=== PATIENT | male | born 1935 | race Caucasian/White ===

== ENCOUNTER 2021-08-02 02:25 | Inpatient (IN) | payer MEDICARE ==
[~2021-08-02] VITALS: Wt 81.4 kg
--- NOTE | 2021-08-02 02:15 | NUR ---
PT ADMITTED TO ROOM 323 VIA STRETCHER FROM [facility]. PT CONFUSED AND PULLING AT IV AND SOSA. CALL LIGHT IN REACH. BED ALARM SET. NOTIFIED MARY JEFFERSON PT IS HERE.
[2021-08-02] MEDS ORDERED: ASPIRIN 81M81 MG/TA2 PO (02:36)
[2021-08-02] MEDS ORDERED: LIPITOR20 MG PO (02:38)
[2021-08-02] MEDS ORDERED: ATIVAN 2MG/ML2 MG/ML IV (02:38)
[2021-08-02] MEDS ORDERED: DIFLUCAN 2200 MG/100 IV (02:39)
[2021-08-02 02:44] VITALS: BP 137/60; PULSE 94; TEMP 97.6
[2021-08-02] MEDS ORDERED: HUMALOG100 U/ML SQ (02:45)
[2021-08-02] MEDS ORDERED: ZESTRIL 20MG TA20 MG PO (02:45)
[2021-08-02] MEDS ORDERED: GLUCOPHAGE1000 MG PO (02:48)
[2021-08-02] MEDS ORDERED: TOPROL XL 50MG50 MG PO (02:49)
[2021-08-02] MEDS ORDERED: MORPHINE SULF2 MG/M1 IV (02:50)
[2021-08-02] MEDS ORDERED: ROCEPHIN VIA1 G/VIAL (02:51)
[2021-08-02] MEDS ORDERED: SODIUM CHLORIDE (02:55)
[2021-08-02] MEDS ORDERED: TYLENOL 325MG325 MG PO (02:55)
[2021-08-02] MEDS ORDERED: GLUCOTROL10 MG PO (02:56)
--- NOTE | 2021-08-02 03:25 | NUR ---
GAVE HALDOL FOR AGITATION. MITTS PUT ON FOR PT SAFETY. LAB HERE TO ATTEMPT BLOOD DRAW. UNABLE TO AT THIS TIME. EZEQUIEL MRAIE RN ABLE TO OBTAIN LAB FROM [facility].
[2021-08-02 03:35] LABS: BASO % 0.4 % (0.0-2.0); EOS # 0.1 K/mm3 (0.0-0.7); EOS % 0.8 % (0-4.0); GRAN # 8.2 K/mm3 (1.4-6.5); HEMATOCRIT 42.5 % (42.0-52.0); HEMOGLOBIN 13.8 g/dl (13.5-18.0); LYMPH # 1.9 K/mm3 (1.2-3.4); LYMPH % 16.9 % (20.0-51.0); MEAN CELL VOLUME 92 fl (80.0-100.0); MEAN CORPUSCULAR HEMOGLOBIN 30 pg (27.0-31.0); MEAN CORPUSCULAR HGB CONC 33 g/dl (33.0-37.0); MEAN PLATELET VOLUME 10.9 fl (7.4-10.4); MONO % 8.5 % (1.7-9.3); PLATELET COUNT 164 K/mm3 (130-400); RED BLOOD COUNT 4.61 M/mm3 (4.20-5.60); REDCELL DISTRIBUTION WIDTH-CV 13.3 % (11.5-14.5)
[2021-08-02 03:52] LABS: LACTIC ACID 2.5 mmol/L (0.5-2.0)
[2021-08-02 03:55] LABS: ALBUMIN 2.9 gm/dL (3.4-4.8); BILIRUBIN,TOTAL 1.3 mg/dL (0.2-1.2); CALCIUM 8.8 mg/dL (8.4-10.2); CREATININE, serum 0.86 mg/dL (0.72-1.25); POTASSIUM 4.3 mmol/L (3.5-4.5); TOTAL PROTEIN 6.4 gm/dL (6.2-8.1)
[2021-08-02 04:32] LABS: HEMOGLOBIN A1C 10.2 %
--- NOTE | 2021-08-02 05:10 | NUR ---
PT RESTING NOW AT THIS TIME. COMMUNITY ARTIST HAS SAT WITH PT SINCE ADMISSION D/T ATTEMPTING TO PULL IV AND SOSA OUT. MARY JEFFERSON NOTIFIED OF THIS BY SHANON CHARGE NURSE.
--- NOTE | 2021-08-02 05:19 | NUR ---
NOTIFIED DR FRASER OF PT'S ADMISSION. PLANS TO COME SEE PT.
[2021-08-02 05:51] VITALS: BP 172/79; PULSE 98; TEMP 98.6
--- NOTE | 2021-08-02 06:19 | NUR ---
PT AWAKE. STILL CONFUSED. TRYING TO REMOVE MITTS.
--- NOTE | 2021-08-02 06:43 | NUR ---
GAVE MS FOR PAIN AT THIS TIME PER DIRECTION OF MARY RESENDIZ. SEE MAR. PT STILL ATTEMPTING TO REMOVE TUBES.
--- NOTE | 2021-08-02 07:24 | NUR ---
0645- Pt. is resting quietly in bed on R side. Report from [facility]. 0700- Noted that pt. has jordan line clamped- informed student nurse teacher and not told in report clamped for UA; Student nurse tried to get urine but none retrieved due to decreased output per report student said; pt. became restless and quietly rests intermittently. 0730- awake and restless trying to get mitts off;does understand instructions to try to rest and purpose of mitts;falls to sleep at 0740.
--- NOTE | 2021-08-02 08:30 | NUR ---
0820- Pt. rests quietly for 10mins...awake and restless;no urine production then restless w/nurse exam for until calmed pt. verbally and tactile w/ warm blanket.Reposition I to L side; mitts removed and sleeping; Ct for ECHO called to do procedure. Restless again.
[2021-08-02 08:45] VITALS: BP 159/43; PULSE 68; TEMP 98.3
--- NOTE | 2021-08-02 10:00 | NUR ---
Contacted Dr. Che, unable to complete MRI d/t pacer being [place] and rep being unavailable until next sunday 08/05. No new orders at this time.
--- NOTE | 2021-08-02 10:02 | NUR ---
PATIENT DID NOT TOLERATE TAKING ORAL MEDICATIONS. MEDICATIONS WERE NOT SWALLOWED WIHT SIPS OF WATER BUT DISSOLVED IN MOUTH. PATIENT HAD MODERATE PRODUCTIVE COUGH AFTER EACH SIP OF WATER.
--- NOTE | 2021-08-02 10:23 | NUR ---
Contacted Dr. Che, patient having low urine output, bladder scanned patient for >980 ml. New order to replace jordan catheter.
[2021-08-02 10:43] LABS: COLLECTION METHOD CATHETER
[2021-08-02 11:00] LABS: PH 6 (5-8); SQUAMOUS EPITHELIAL None Seen /hpf; URINE APPEARANCE Cloudy; URINE BACTERIA Rare /hpf; URINE BILIRUBIN Negative (NEGATIVE); URINE BLOOD 3+ (NEGATIVE); URINE COLOR Yellow; URINE GLUCOSE 3+ (NEGATIVE); URINE KETONE 1+ (NEGATIVE); URINE LEUKOCYTE ESTERASE Negative (NEGATIVE); URINE NITRATE Negative (NEGATIVE); URINE PROTEIN(semi-quant) 2+ (NEGATIVE); URINE RBC >50 /hpf; URINE UROBILINOGEN Negative (NEGATIVE)
--- NOTE | 2021-08-02 11:26 | NUR ---
PREVIOUS SOSA CATHETER REMOVED, 16 GREENLANDIC COUDE PLACED WITH GOOD URINE OUTPUT. MODERATE AMOUNT OF BLOOD NOTED IN URINE. PATIENT TOLERATED WELL.
--- NOTE | 2021-08-02 11:30 | NUR ---
UA SENT TO LAB.
--- NOTE | 2021-08-02 11:36 | NUR ---
1030-Pt. restless;Student nurse attempted to irrigate catheter w/no return of urine but 2 in. blood clot propelled onto bed w/small amount of bleeding. Jordan cath placed by student nurse w/teachers supervision w apparent discomfort for pt and more slight bleeding; few blood clots into tubing w/orange fluid returning into jordan bag. Instructed student nurse to clamp tubing once 1000ml urine in jordan bag to prevent sudden bladder collaspe and increased bleeding. Urine in tubing and bag dark marsh red > 1000ml and so clamped tubing x15 min, and RN to room and emptied jordan. Jordan tubing remained clamped x15min. Student nurse returned to pt's room and updated on above info and reason for tubing to be clamped. urine med marsh red and RN will watch for need of CBI. Pt. given med IV for restlessness. Pleasantly confused. and at 11:50 pt. falls to sleep onto R side.
[2021-08-02 11:57] VITALS: BP 140/50; PULSE 64; TEMP 99.5
--- NOTE | 2021-08-02 13:23 | NUR ---
1300-Placed in chair position;pt. fell to sleep. EKG done and pt. restless;Mitts removed and turned to R side min assist;fell to sleep. Urine remains dark marsh red..minimal output/hr.
--- NOTE | 2021-08-02 14:14 | NUR ---
1400- pt. slept past 1 hr then awaked to turn self to L side then to his back then to R side resting more quietly.
--- NOTE | 2021-08-02 14:53 | NUR ---
Patient to CT by bed.
--- NOTE | 2021-08-02 15:16 | NUR ---
Called by CT, patient anxious attempting to hit staff. Haldol given per orders.
--- NOTE | 2021-08-02 15:33 | NUR ---
1530- to and from CT scanner per bed for Head scan w/ and w/o contrast; was too restless and needed IV Haldol given per RN. Rests quietly once turned to right side after scan completed. Urine remains dark marsh red in jordan bag.
[2021-08-02 15:58] LABS: HEMATOCRIT 40.9 % (42.0-52.0); HEMOGLOBIN 13.4 g/dl (13.5-18.0)
--- NOTE | 2021-08-02 16:08 | NUR ---
The patient has been confused and went down for a scan. MARVA contacted the patient's son, Niles (#[phone]), to discuss discharge plan. The patient lives alone in [place]. Niles lives near the patient. Niles reports that the patient is independent with ADLs and does not have any DME. Niles reports that the patient has just had a decline in the last few days. Niles reports that the patient's PCP is Dr. Clifford in [place], but that he may be switching to Dr. Melissa in [place]. He receives his medications at [facility]. The patient does not have a DPOA-HC in EMR, but Niles reports that the patient does have one completed and that he is the patient's DPOA-HC. He reports that he has a copy. He reports that the patient is not and that he is the patient's only child. MARVA discussed possible post-acute rehab upon discharge. Niles reports that Dr. Melissa did mention this to him and about having the patient transfer to their swing bed in [place] upon discharge. He was open for MARVA to send a referral. Niles also requested a call from the doctor. MARVA notified the hospitalist. MARVA contacted and faxed a referral to [facility]. Awaiting screen. *Discharge plan: [facility] swing bed* [facility]: #[phone] fax#[phone]
[2021-08-02 16:30] VITALS: BP 132/60; PULSE 76; TEMP 98
--- NOTE | 2021-08-02 17:02 | NUR ---
1700- Pt. is restless after slept half an hour on his R side and restless w min assistto L side and to back to chair position; tries to pull at jordan,IV tubing and site, throws off covers, and pulling at telemetry wires; turned to his R side at 17:20 and resting quietly at present.
--- NOTE | 2021-08-02 18:27 | NUR ---
1800- Pt. having increased restlessness and not able to rest- apnea less from 20-25 secs. to 5-10 secs. at this time and RN notified that pt. is not able to stop pulling on tubings and slightly bloody nino areas and stat lock needed to be changed for second time today. RN gave IV med. Cleaned and repositioned to his R side; pt. denies any pain and after 20 mins pt. is less restless.
--- NOTE | 2021-08-02 19:37 | NUR ---
PT RESTLESS IN BED. SITTER AT BEDSIDE. NO EVIDENCE OF PAIN. SOSA TO DD WITH DARK REJI SL PINK URINE RETURN.
[2021-08-02 20:01] VITALS: BP 132/61; PULSE 79; TEMP 98.5
--- NOTE | 2021-08-02 20:36 | NUR ---
UNABLE TO TAKE HS PILLS.
--- NOTE | 2021-08-02 23:44 | NUR ---
PT BECOMING RESTLES AND PULLING ON TUBINGS. SEE MAR FOR MS GIVEN. REPOSTIONED FOR COMFORT. SOME BLOOD URINE NOTED IN SOSA FROM PT PULLING ON IT. WILL CONTINUE TO MONITOR. NO BLADDER FULLNESS NOTED.
[2021-08-03] VITALS (7 sets, daily range): BP systolic 140–178; BP diastolic 52–64; PULSE 70–79; TEMP 97.4–98.7
--- NOTE | 2021-08-03 06:50 | NUR ---
THE RN IS SITTING WITH PATIENT TODAY; PT DID WAKE UP AND WAS ALERT, PT ASKED "AM I IN THE HOSPITAL?" THE RN DID PERFORM A NEURO CHECK, PT IS ALERT AND ORIENTED X2. HE WAS ABLE TO STATE HIS NAME, BIRTHDAY, HE KNEW THAT IT WAS FALL, AND HE KNEW WHAT CITY HE WAS FROM, BUT WAS UNAWARE WHAT CITY HE WAS IN BECAUSE HE DOES NOT REMEMBER BEING BROUGHT IN AT ALL. PRIMARY RN NOTIFIED.
[2021-08-03 08:24] LABS: BASO % 0.4 % (0.0-2.0); EOS # 0.1 K/mm3 (0.0-0.7); EOS % 1.4 % (0-4.0); GRAN # 7.2 K/mm3 (1.4-6.5); GRAN % 70.5 % (42.2-75.2); HEMATOCRIT 42.7 % (42.0-52.0); HEMOGLOBIN 13.7 g/dl (13.5-18.0); LYMPH # 1.8 K/mm3 (1.2-3.4); LYMPH % 17.6 % (20.0-51.0); MEAN CELL VOLUME 93 fl (80.0-100.0); MEAN CORPUSCULAR HEMOGLOBIN 30 pg (27.0-31.0); MEAN CORPUSCULAR HGB CONC 32 g/dl (33.0-37.0); MEAN PLATELET VOLUME 12.1 fl (7.4-10.4); MONO % 9.7 % (1.7-9.3); PLATELET COUNT 124 K/mm3 (130-400); RED BLOOD COUNT 4.61 M/mm3 (4.20-5.60); REDCELL DISTRIBUTION WIDTH-CV 13.5 % (11.5-14.5)
[2021-08-03 08:39] LABS: ALBUMIN 2.4 gm/dL (3.4-4.8); BILIRUBIN,TOTAL 1.3 mg/dL (0.2-1.2); CALCIUM 8.6 mg/dL (8.4-10.2); CREATININE, serum 0.82 mg/dL (0.72-1.25); POTASSIUM 3.5 mmol/L (3.5-4.5); TOTAL PROTEIN 5.9 gm/dL (6.2-8.1)
--- NOTE | 2021-08-03 08:58 | NUR ---
Provided pericare, no abnormality with the foreskin. Replaced the statlock on the jordan catheter, pt denies any pain during care. No further concerns.
--- NOTE | 2021-08-03 09:24 | NUR ---
Pt becoming far more alert this morning. Dr. Che performed rounding this morning and assessed the patient. The patient was able to answer orientation questions about himself, and was able to state his son's name Niles. The patient is relaxed and resting. He does grab at the tubing for his catheter, and states that he would like to go to the bathroom. This RN reoriented the patient to having a catheter, and that his bladded is being drained by that. He states "This is just crazy, I've never had anything like this in my whole life." The patient does seem confused as to how he got here, but is becoming more alert and oriented as time passes. No further concerns at this time.
--- NOTE | 2021-08-03 11:14 | NUR ---
Left VM for Dr. Gracia about consult.
--- NOTE | 2021-08-03 12:35 | NUR ---
Pt is awake and alert sitting in recliner with the chair alarm in place and activated. The patient shakes his head side to side with some vigor and states, "There is something wrong with my head." The patient denies any headaches or pain to his body, just the off feeling he's having in his head. There are no other concerns at this time. Pt has been drinking water without coughing. Pt is doing some neck physical therapy on his own, when this RN asked if his neck was sore, he said no, he was just bored, so felt he needed to be doing something. No other concerns at this time.
--- NOTE | 2021-08-03 15:13 | NUR ---
PT IS CURRENTLY GETTING VERY CONFUSED, AND HAS BEGUN TO ASK IF HE CAN GO HOME. THIS RN CONTINUES TO ATTEMPT TO REORIENT, HOWEVER, THE MEMORY IS VERY SHORT, AND HE IS UNABLE TO RECALL WHY HE IS BEING ASKED TO STAY. HE IS AWARE THAT HE IS IN THE HOSPITAL, HOWEVER HE CONTINUES TO STATE HE IS IN [facility] WHICH IS WHERE THE PATIENT LIVES. PT HAS ASKED FOR ALL THE TUBES AND DRAINS TO BE REMOVED, AND AGAIN HE IS ORIENTED TO THEIR PURPOSE. PT IS BEGINNING TO GET UPSET AT THE INABILITY TO GO HOME. WILL NOTIFY PRIMARY RN OF STATUS.
--- NOTE | 2021-08-03 17:44 | NUR ---
Pt has been very restless this afternoon/evening. He has gotten up and down, and has walked all over the surgical floor. Pt is somewhat stable when walking, just some assistance to make sure he does not fall.
--- NOTE | 2021-08-03 19:00 | NUR ---
Bedside shift report received, assumed care for crochet machine operator. Assessment complete. Alert-oriented to person. VS remained stable. Smauels cath with red tinged urine with occasional small clot. INT to right upper arm flushes without difficulty. Denies pain/nausea/shortness of breath. No s/s of at this time. Up to ambulate in hallway with gait belt. Back to chair-alarm on. Call light in reach. Will monitor.
--- NOTE | 2021-08-03 20:10 | NUR ---
IV fluids restarted at this time per dr order.
--- NOTE | 2021-08-03 20:30 | NUR ---
Up to ambulate in the hallway with one assist/gait belt. Tolerated well. Has been taking in water well so far this shift. This nurse continues to be at bedside.
--- NOTE | 2021-08-03 23:38 | NUR ---
Resting comfortably in bed. Blanka/cath care provided and brief changed. VS currently stable. Samuels cath with anamaria colored urine. IV fluids continue to infuse to right upper arm IV without difficulty. This nurse remains at bedside per dr mike.
--- NOTE | 2021-08-04 03:10 | NUR ---
Has been getting increasingly more agitated the last thirty minutes. Pulling on IV/jordan cath stating he wants to go to his car and drive home. Reoriented several times but still trying to climb over bed rails. Haldol given per dr order. This nurse remains at bedside per dr order.
[2021-08-04 03:18] VITALS: BP 152/65; PULSE 70; TEMP 97.3
--- NOTE | 2021-08-04 04:59 | NUR ---
Rested well most of this shift. Did receive Haldol x1 per dr order with good results. Samuels cath with linen checker urine this AM. IV fluids continue to infuse to right forearm IV without difficulty. Good oral intake over night. Denies pain/nausea/shortness of breath. VS remained stable. This nurse remained at bedside per dr order. Will monitor.
--- NOTE | 2021-08-04 05:45 | NUR ---
SCDs have been off all this shift due to causing increased agitation when placed.
[2021-08-04 06:36] LABS: BASO # 0.1 K/mm3 (0.0-0.2); BASO % 0.6 % (0.0-2.0); EOS # 0.3 K/mm3 (0.0-0.7); EOS % 3.7 % (0-4.0); GRAN % 61.9 % (42.2-75.2); HEMOGLOBIN 12.3 g/dl (13.5-18.0); LYMPH # 2.1 K/mm3 (1.2-3.4); LYMPH % 25.3 % (20.0-51.0); MEAN CORPUSCULAR HEMOGLOBIN 30 pg (27.0-31.0); MEAN CORPUSCULAR HGB CONC 34 g/dl (33.0-37.0); MEAN PLATELET VOLUME 11.7 fl (7.4-10.4); MONO # 0.7 K/mm3 (0.1-0.6); MONO % 8.3 % (1.7-9.3); PLATELET COUNT 153 K/mm3 (130-400); RED BLOOD COUNT 4.15 M/mm3 (4.20-5.60); REDCELL DISTRIBUTION WIDTH-CV 13.2 % (11.5-14.5)
[2021-08-04 06:41] LABS: HEMATOCRIT 36.3 % (42.0-52.0); MEAN CELL VOLUME 88 fl (80.0-100.0)
[2021-08-04 07:01] LABS: ALBUMIN 2.3 gm/dL (3.4-4.8); CALCIUM 7.9 mg/dL (8.4-10.2); CREATININE, serum 0.76 mg/dL (0.72-1.25); PHOSPHOROUS 1.5 mg/dL (2.3-4.7); POTASSIUM 3.3 mmol/L (3.5-4.5)
[2021-08-04 07:34] VITALS: BP 151/62; PULSE 70; TEMP 97.9
--- NOTE | 2021-08-04 07:45 | NUR ---
A & O X1 but responsive to staff. Not able to tell this nurse where he is or the current year. Repeatedly asked "why are you in my house?" This nurse explained his current situation, however continued believe he was in his hometown and in his own house. Otherwise has been cooperative with this nurse. Bed alarm on; will continue to monitor.
--- NOTE | 2021-08-04 09:00 | NUR ---
Hospitatist notified that patient was drinking fluids but was not able to take non-crushable pills. Not able to give am dose of metoprolol XL. HR within normal limits; will continue to monitor.
--- NOTE | 2021-08-04 10:15 | NUR ---
Patient expressed desire to "get out of here". Asked if he would like to go for a "tour" around the unit and replied that he would. Able to use gait belt and walker and ambulated to his doorway. Switched to a wheelchair and went around the hospital for approximately 20 min. Tolerated well and expressed apppreciation to staff for showing him around. Patient then stated he was tired. Assisted back to bed and currently resting with eyes shut.
[2021-08-04 11:44] VITALS: BP 159/71; PULSE 70; TEMP 98.2
--- NOTE | 2021-08-04 13:43 | NUR ---
Patient has been more restless this afternoon. Requires frequent re-orientation. Have taken multiple walks and rides in the wheelchair in and around the unit as patient does not tolerate staying in his room for long periods of time.
[2021-08-04 16:07] VITALS: BP 158/78; PULSE 70; TEMP 98.3
--- NOTE | 2021-08-04 17:00 | NUR ---
Patient resting more comfortably this afternoon and able to take a long nap; Remains confused but not attempting to get up from bed contantly. Asked hospitalist to re-evaluate for need of 1:1 sitter. Per hospitalist will continue with 1:1 at this time and will re-evaluate in the morning.
[2021-08-04 20:00] VITALS: BP 171/79; PULSE 70; TEMP 99.3
[2021-08-05] VITALS (8 sets, daily range): BP systolic 134–188; BP diastolic 55–93; PULSE 70–78; TEMP 97.2–98.3
--- NOTE | 2021-08-05 08:24 | NUR ---
0715- Pt. is agitated trying to pull at jordan and IV tubing;Confused and refuses food and drink. Restless and curses at times cause he is prevented from pulling at tubings and at 0810 says he may as well give up. Lab and Echo to be done and called both letting them know he was resting better, and lab returned w/assist to x1 max for blood draw. Echo all busy at present when called for procedure readiness. Pt. did want his son to visit today then back to sleep. Urine clear yellow. Pt. does cough at times when asleep. Apnea to shallow breathing q 25-30 secs/min while sleeping.
[2021-08-05 08:27] LABS: BASO % 0.4 % (0.0-2.0); EOS # 0.2 K/mm3 (0.0-0.7); EOS % 2.9 % (0-4.0); GRAN # 4.6 K/mm3 (1.4-6.5); GRAN % 65.3 % (42.2-75.2); HEMOGLOBIN 13.4 g/dl (13.5-18.0); LYMPH # 1.5 K/mm3 (1.2-3.4); LYMPH % 21.4 % (20.0-51.0); MEAN CELL VOLUME 90 fl (80.0-100.0); MEAN CORPUSCULAR HEMOGLOBIN 30 pg (27.0-31.0); MEAN CORPUSCULAR HGB CONC 34 g/dl (33.0-37.0); MEAN PLATELET VOLUME 11.1 fl (7.4-10.4); MONO # 0.7 K/mm3 (0.1-0.6); MONO % 9.7 % (1.7-9.3); PLATELET COUNT 177 K/mm3 (130-400); RED BLOOD COUNT 4.47 M/mm3 (4.20-5.60); REDCELL DISTRIBUTION WIDTH-CV 13.2 % (11.5-14.5)
[2021-08-05 08:48] LABS: ALBUMIN 2.4 gm/dL (3.4-4.8); CALCIUM 8.1 mg/dL (8.4-10.2); CREATININE, serum 0.74 mg/dL (0.72-1.25); MAGNESIUM 1.6 mg/dL (1.6-2.6); PHOSPHOROUS 1.8 mg/dL (2.3-4.7); POTASSIUM 3.3 mmol/L (3.5-4.5)
--- NOTE | 2021-08-05 08:56 | NUR ---
Patient sitting up in bed. Alert and oriented only to self. Samuels to DD with clear yellow urine present. Fluids infusing per orders to left forarm IV. Attempted to give patient AM meds, patient had increased coughing with medications that were able to be crushed and put in pudding. Whole meds not given at this time. Apresoling given per orders for SBP >180. Patient denies needs at this time. Sitter at bedside.
--- NOTE | 2021-08-05 09:59 | NUR ---
0915- Pt. awake and RN updated on pt.having cough,apnea when fell to sleep, and not wanting to eat or drink; did take milk after taking crushed meds w/pudding for RN; pt. wanting to get up for BM. Impulsive and x2 max assist to BSC w/frequent verbal and tactile cues;Passed flatus and x2 to walk to recliner in pt's room;Legs elevated and after couple sips of water pt. was nauseated and sipping up after coughing milk,pudding and mucous w/food particles,crushed pills; RN informed and antinausea med given.Pt. continues cooperative and pleasantly confused. Doea pull on SRINIVASAN wrap saying IV hurts;RN did check site. 1010-Pt. less nauseated;3 sips of water taken.
--- NOTE | 2021-08-05 11:02 | NUR ---
1045- Pt. wanting to go home and repeats himself-pleasantly confused;no more vomitting; to bed w/multiple cues for safety;slight pink smear on chux in chair;scrotal redness; IV site leaking and RN noted; RUE int site not working and IV site leaking clear fluid; RN will restart IVF site. Pt. rests quietly in bed and thristy-given sips of water-no choking.
--- NOTE | 2021-08-05 12:34 | NUR ---
1200- Pt. asleep after Carotid study done and given sips of water. 1235- .. here for swallow and cognitive study.
--- NOTE | 2021-08-05 13:22 | NUR ---
1220-P.T. x2 to instruct pt. about safety and therapy for exercise. 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
--- NOTE | 2021-08-05 16:23 | NUR ---
MARVA contacted [facility] [phone], spoke with Kirsty. They will review in a.m. Referral sent, fax #[phone]. MARVA will follow up in morning. Notified son.
--- NOTE | 2021-08-05 16:24 | NUR ---
1530-Pt. returned to bed after asleep in recliner and awakened for restart IV- IVFs. Pt. is weak x1 mod for transfer and safety cues using FWW and fall precautions,16:30- Pt. repositions self to R side-falls asleep.
--- NOTE | 2021-08-05 17:47 | NUR ---
1745; pt. sleeps off and on. When awake he pulls at IV and states he is not hungry yet. Will wait until 6p.m. to try to eat supper.
--- NOTE | 2021-08-05 19:14 | NUR ---
Patient doing well throughout the day, Sitter at bedside. Samuels to DD with clear yellow urine present. Fluids infusing per orders to right hand IV. Patient denies pain at this time. Will report off to application coordinator.
[2021-08-06] VITALS (8 sets, daily range): BP systolic 151–194; BP diastolic 56–85; PULSE 69–70; TEMP 97.6–98.9
--- NOTE | 2021-08-06 07:23 | NUR ---
0645- Pt. is sleepy and pleasantly confused; Agrees to not pull on any tubes- says he will try. Frequently says he needs to go to the BR to pee and cannot remember that he has jordan in; Less agitated w/o mitts on.. but trying to uncover himself to get up to use BR. RN informed and noted min bloody urine in bag and tubing. RN will ask about removing jordan vs irrigation.pt. able to assist moving himself up in bed and max to wash face and upper body washing.
--- NOTE | 2021-08-06 08:27 | NUR ---
0820-Pt. declines to eat; says he does not eat breakfast at home; drank milk max assist to take sips and cues to swallow. MRI here to do screen for test at 11:00 and knows he had milk- plan w/ and w/o contrast. Pt. says he just wants to go home. Lab here for third try for labwork..due to clotting of 1st spec. Pt. does nap even with needle sticks.
[2021-08-06 08:54] LABS: BASO % 0.4 % (0.0-2.0); EOS # 0.1 K/mm3 (0.0-0.7); EOS % 1.7 % (0-4.0); GRAN # 5.4 K/mm3 (1.4-6.5); GRAN % 71.3 % (42.2-75.2); HEMOGLOBIN 12.9 g/dl (13.5-18.0); LYMPH # 1.2 K/mm3 (1.2-3.4); LYMPH % 15.8 % (20.0-51.0); MEAN CELL VOLUME 89 fl (80.0-100.0); MEAN CORPUSCULAR HEMOGLOBIN 30 pg (27.0-31.0); MEAN CORPUSCULAR HGB CONC 34 g/dl (33.0-37.0); MEAN PLATELET VOLUME 11.6 fl (7.4-10.4); MONO # 0.8 K/mm3 (0.1-0.6); MONO % 10.4 % (1.7-9.3); PLATELET COUNT 173 K/mm3 (130-400); RED BLOOD COUNT 4.29 M/mm3 (4.20-5.60); REDCELL DISTRIBUTION WIDTH-CV 13.5 % (11.5-14.5)
--- NOTE | 2021-08-06 08:55 | NUR ---
MARVA recd call from patient's son, Niles, stating he is frustrated that he is not receiving updated reports. MARVA shared with son that referral was [facility] Son states he has talked with RN and Dr. Viera but that it still is not clear what the plan is. Son is aware there is an MRI pending. MARVA will give hospitalist son's name and number to update him when they can. SW will keep son updated as to placement and progress.
[2021-08-06 09:04] LABS: CALCIUM 8.2 mg/dL (8.4-10.2); CREATININE, serum 0.76 mg/dL (0.72-1.25); MAGNESIUM 1.8 mg/dL (1.6-2.6); POTASSIUM 3.4 mmol/L (3.5-4.5)
--- NOTE | 2021-08-06 09:05 | NUR ---
0900- here to see pt. Updated on 15ml of urine past 2.5 hrs and poor po intake of H2O and milk only.REstless and pulls at tubings;anxious and wanting to go home. Has MRI scheduled at 11:00 W/ and W/O contrast so NPO. Needs med for anxiety. Plans to flush jordan rather than removal. noted lung crakles. Pt. restless at times and falls to sleep at times. Multiple reminding that he cannot go home until says he can and jordan in place for urination.
--- NOTE | 2021-08-06 10:15 | NUR ---
Contacted Rhonda JEFFERSON, patient is to have MRI at 1100, was unable to sit still previously for CT and has been attempting to pull at jordan catheter today. New order for ativan prior to MRI.
--- NOTE | 2021-08-06 10:31 | NUR ---
1000- RN replaced jordan cath after attempts to clear jordan for urine return w/o success;#16 replaced w/ #18 jordan and clots w/blood trickles at penile opening after bladder scanned <200ml. Return not immrdiate but with repositioning jordan tubing- about 400ml w/red urine to clearing of urine. ST here to see pt. with confusion; Somewhat restless.
--- NOTE | 2021-08-06 11:51 | NUR ---
Patient back from MRI.
--- NOTE | 2021-08-06 12:25 | NUR ---
1200-Pt. sleeps and awaken at intervals trying to pull at jordan and than back to sleep. Urine light marsh red in jordan bag to clearing yellow in tubing. Pt. says he is too tired to eat or drink. Apnea q20 seconds q1-2min when asleep.
--- NOTE | 2021-08-06 13:40 | NUR ---
1330- Pt. is more restless-pulls at blankets,gown and attends; mitts applied and seems to rest better;not awake enough to eat or drink. Urine clearing of blood and more output.
--- NOTE | 2021-08-06 16:15 | NUR ---
Apresoline given for SBP 178
--- NOTE | 2021-08-06 18:24 | NUR ---
1815- Fed pt. alternating w/3 small bites and 3 teaspoons of milk or tea and pt. needed cues to swallow but apparently not able to clear and coughs out milky mucus for >15mins. in sitting up position. Urine light yellow w few tiny blood clots.
--- NOTE | 2021-08-06 19:11 | NUR ---
Patient doing well throughout the day, sitter discontinued this afternoon as patient is sleeping intermittently after MRI. Mitts placed on patient. Fluids infusing per orders. Samuels to DD with clear yellow urine at this time. Reported off to pullboat engineer.
--- NOTE | 2021-08-06 22:00 | NUR ---
PT IS DROWSY BUT AWAKENS EASILY TO NAME. ATTEMPTED TO GIVE PT HIS HS PILLS CRUSHED IN PUDDING. PT INSTRUCTED TO SWALLOW. PT IS SEEN ATTEMPTING TO SWALLOW BUT BEGINS COUGHING. PT TOOK 1/2 OF PILLS CRUSHED BUT DID NOT ATTEMPT TO ADMINISTER THE REST R/T CONCERN FOR ASPIRATION. ORAL CARE PROVIDED.
[2021-08-07 04:10] VITALS: BP 158/83; PULSE 70; TEMP 97.8
--- NOTE | 2021-08-07 05:53 | NUR ---
PT'S SON CALLED ET UPDATED ON PT CONDITION R/T PREVIOUS REQUEST. PT HAS BEEN IN BED ALL NIGHT. INTERMITTENTLY SLEEPS ET, HAS BEEN REPOSITIONED WITH 2 ASSIST FREQUENTLY. WHEN PT IS AWAKE, PT STATES THAT HE DOES NOT KNOW WHERE HE IS, DENIES ANY PAIN, ATTEMPTS TO PULL @ SOSA CATH ET PERIPHERAL IV. MITTS PLACED ON HANDS, TAKEN OFF Q 2HRS TO CHECK PULSES ET IV SITE. IV SITE REMAINS INTACT ET BILAT PULSES STRONG. PT'S SAMPLE PREP TECHNICIAN IN BILATERAL HANDS IS STRONG. IV FLUIDS INFUSING, SOSA CATHETER DRAINING DARK YELLOW, CLOUDY URINE. NO BLOOD OR CLOTS SEEN. BED ALARM ON, CALL LIGHT WITHIN REACH.
[2021-08-07 06:53] LABS: BASO % 0.5 % (0.0-2.0); EOS # 0.2 K/mm3 (0.0-0.7); EOS % 1.8 % (0-4.0); GRAN # 5.4 K/mm3 (1.4-6.5); GRAN % 65.7 % (42.2-75.2); HEMATOCRIT 40.5 % (42.0-52.0); HEMOGLOBIN 13.7 g/dl (13.5-18.0); LYMPH # 1.8 K/mm3 (1.2-3.4); LYMPH % 21.6 % (20.0-51.0); MEAN CELL VOLUME 88 fl (80.0-100.0); MEAN CORPUSCULAR HEMOGLOBIN 30 pg (27.0-31.0); MEAN CORPUSCULAR HGB CONC 34 g/dl (33.0-37.0); MEAN PLATELET VOLUME 12.1 fl (7.4-10.4); MONO # 0.8 K/mm3 (0.1-0.6); PLATELET COUNT 167 K/mm3 (130-400); RED BLOOD COUNT 4.58 M/mm3 (4.20-5.60); REDCELL DISTRIBUTION WIDTH-CV 13.5 % (11.5-14.5)
--- NOTE | 2021-08-07 07:09 | NUR ---
Pt doing okay at this time. Reports no needs, call light within reach
[2021-08-07 07:10] LABS: CALCIUM 9.2 mg/dL (8.4-10.2); CREATININE, serum 0.75 mg/dL (0.72-1.25); POTASSIUM 3.8 mmol/L (3.5-4.5)
[2021-08-07 07:54] VITALS: BP 130/71; PULSE 70; TEMP 98.5
--- NOTE | 2021-08-07 08:30 | NUR ---
Pt did eat a few bites of breakfast, but then quickly fell back to sleep. He was somewhat difficult to wake back up. I was able to get him to take his pills with applesauce, but it did take some effort to get him to swallow. He then started to use his fingers with his food and then fell back asleep again.
--- NOTE | 2021-08-07 09:08 | NUR ---
Awaiting urine cultures from urology; Patient no longer has a sitter but remains confused. SW will cont to follow for d/c planning.
[2021-08-07 11:21] VITALS: BP 123/89; PULSE 70; TEMP 97.8
--- NOTE | 2021-08-07 11:21 | NUR ---
Pt has had a bed bath and linens changed. Pt remained drowsy during this time. PT did work with pt and he did ambulate to the desk and back. He did well using his walker. Pt continues to state that he needs to urinate. Pt has jordan catheter which is drainage clear yellow output. Pts son did call mid morning. He was very unhappy and kept saying that his dad was sent here to have his prostate fixed and wondered why we weren't fixing it. Informed him that urology is aware, but that it is something that will be looked into as an outpatient. Pt was not happy to hear this and then right away went on and stated that he doesn't even know what is going on because he keeps getting told different things from everyone. I asked for specifics and he was not able to give any. Pts son then stated that someone called him at 5:00am to come pickling operator his father. I explained that not sure who would have done that because we do not have any orders for him to leave and that once we do, it will be a discussion about tranportation and not a call at 5am. He was then upset that he might be discharged with a catheter and we can't just get rid of someone with one. I stated that pt do discharge and transfer with catheters all the time. Conversation went on for over 30minutes. I was not able to answer questions as the son wanted and he was not clearly understanding the plan of care for the pt. I did end the call mid conversation as he started to threaten lawers and that I needed to be taking orders from the in [place].
--- NOTE | 2021-08-07 12:06 | NUR ---
MARVA recd call from Meg at [facility]; she states that their admitting dr was not in yesterday when she said they could take patient on Thu. Now that Dr. Lavonne Burgess is back in and had a chance to review she is not sure they can take patient. Dr. Burgess would like to talk to our hospitalist. MARVA passed # and info to hospitalist ([phone]). Per Meg, the hospital also recd a call from patient's son telling them about how volatile patient is and he is not sure he wants to come and transport patient to [place]. This worker shared with Meg pt no longer has a sitter and pt is less agitated; currently awaiting urine cultures. MARVA met with patient and asked him some questions, all of which he answered competently. Other than wanting to get out of bed to urinate he appeared a/o. Patient told this worker that he typically sees his son about 1 x a week when he is at home. Discharge plan is pending [facility] once pt is med. stable and phone contact with doctor is made.
--- NOTE | 2021-08-07 12:52 | NUR ---
Pt has been very aggitated since receiving bed bath. He continues to say that he needs to urinate, jordan catheter draining with no issues. Pt then stating that he needs to go to the other room, confused as to being in the hospital. Pt keeps taking his gown off and is very restless. Attempt to reorient and direct pt, but does not follow directions. Mitts on at this time and pt in bed. Bed alarm on. Dr Gracia in to see pt, new orders wrote. Pt was leaning over side of bed around earlier. There was some frothy clear sputum on floor and down siderail of bed. Pt does have a slight cough now, will get chest xray.
--- NOTE | 2021-08-07 13:38 | NUR ---
EEG in progress at this time
--- NOTE | 2021-08-07 14:01 | NUR ---
MARVA spoke with Meg at [facility] , to inquire about patient's PCP. She is not aware of any PCP that patient had prior to hospitalization at their facility. MARVA unable to meet with patient at this time as he is having a test done. MARVA will follow up
[2021-08-07 15:49] VITALS: BP 147/90; PULSE 70; TEMP 97.5
[2021-08-07 19:39] VITALS: BP 156/55; PULSE 70; TEMP 97.7
[2021-08-08] VITALS (8 sets, daily range): BP systolic 100–183; BP diastolic 48–92; PULSE 70–96; TEMP 97.3–98
--- NOTE | 2021-08-08 02:44 | NUR ---
PT RESTING QUIETLY IN BED @ THIS TIME. RESPIRATIONS UNLABORED. PT HAD ATTEMPTED TO PULL ON SOSA WHILE AWAKE EARLIER IN NIGHT. HAD MANGAGED TO PULL STAT LOCK OFF OF LEG. STATLOCK REPLACED. SOSA CATHETER CONTINUES TO DRAIN YELLOW URINE. NO CLOTS OR BLOOD SEEN. CONTINUES TO BE ORIENTED ONLY TO SELF. WHEN ASKED WHERE HE THINKS WE ARE AT, PT STATES "IN THE BASEMENT". ATTEMPTS MADE TO RE-ORIENTATE PT ARE UNSUCCESSFUL. PT STATES MULTIPLE TIMES THAT HE WOULD LIKE TO GO HOME. PT REPOSITIONED IN BED MULTIPLE TIMES. PT ALSO MOVES SELF IN BED FREQUENTLY WHILE AWAKE, TURNS INDEPENDENTLY. HS PILLS WERE ADMINISTERED CRUSHED IN APPLESAUCE. PT IS ABLE TO SWALLOW WITH VERY FREQUENT PROMPTING, STATES THAT IT IS HARD FOR HIM TO SWALLOW. BED ALARM IS ON. CALL LIGHT WITHIN REACH.
--- NOTE | 2021-08-08 05:10 | NUR ---
PT IS AWAKE BUT DROWSY. OCCASIONALLY TRIES TO PULL ON IV TUBING ET SOSA CATH. PT STATES THAT HE WANTS TO GO HOME ET THAT HE WANTS ME TO START HIS TRUCK UP. ATTEMPTED TO RE-ORIENT PT TO SITUATION. PT STATES THAT HE IS COLD, GIVEN WARM BLANKET. BP IS ELEVATED, IV HYDRALAZINE ADMINISTERED. BED ALARM ON, CALL LIGHT WITHIN REACH. WILL CONTINUE TO MONITOR.
[2021-08-08 07:18] LABS: HEMATOCRIT 42.9 % (42.0-52.0); HEMOGLOBIN 14.6 g/dl (13.5-18.0); MEAN CELL VOLUME 87 fl (80.0-100.0); MEAN CORPUSCULAR HEMOGLOBIN 30 pg (27.0-31.0); MEAN CORPUSCULAR HGB CONC 34 g/dl (33.0-37.0); MEAN PLATELET VOLUME 12.3 fl (7.4-10.4); PLATELET COUNT 185 K/mm3 (130-400); RED BLOOD COUNT 4.94 M/mm3 (4.20-5.60); REDCELL DISTRIBUTION WIDTH-CV 13.5 % (11.5-14.5)
[2021-08-08 07:33] LABS: CREATININE, serum 0.73 mg/dL (0.72-1.25); POTASSIUM 3.7 mmol/L (3.5-4.5)
--- NOTE | 2021-08-08 09:25 | NUR ---
Pt only ate a small amount of his breakfast. He does need a lot of coaching. He did take his pills okay crushed and in applesauce. PT in working with pt at this time.
[2021-08-08 09:56] LABS: ARTERIAL BLD GAS TCO2 CT 20.5; ARTERIAL BLOOD GAS BASE EXCESS -2.1 (-2-2); ARTERIAL BLOOD GAS HCO3 19.7 meq/L (22-26); ARTERIAL BLOOD GAS PCO2 26.1 mmHg (35-45); ARTERIAL BLOOD GAS PO2 73.1 mmHg (80-100)
--- NOTE | 2021-08-08 13:30 | NUR ---
Pt has been sleeping most of the day. He does wake just for a short time when woke for therapy. Pt does only eat a small and then falls back asleep. Pt does not appear to be in any pain. He seems less agitated today than yesterday. Occasionally he messes with his jordan catheter but is able to be redirected. Pt repositioned through out the day although he does not stay for very long. BP was elevated during noon VS, PRN given and BP rechecked which was within normal limits.
--- NOTE | 2021-08-08 17:28 | NUR ---
Pt continues to remain the same. Did only eat a couple bites of dinner and then had no interest.
[2021-08-09 00:15] VITALS: BP 144/81; PULSE 95; TEMP 98.3
[2021-08-09 04:25] VITALS: BP 165/75; PULSE 87; TEMP 98.5
[2021-08-09 07:02] LABS: HEMATOCRIT 41.9 % (42.0-52.0); MEAN CELL VOLUME 89 fl (80.0-100.0); MEAN CORPUSCULAR HEMOGLOBIN 30 pg (27.0-31.0); MEAN CORPUSCULAR HGB CONC 33 g/dl (33.0-37.0); MEAN PLATELET VOLUME 11.3 fl (7.4-10.4); PLATELET COUNT 235 K/mm3 (130-400); REDCELL DISTRIBUTION WIDTH-CV 13.6 % (11.5-14.5)
[2021-08-09 07:13] LABS: CALCIUM 9.2 mg/dL (8.4-10.2); CREATININE, serum 0.76 mg/dL (0.72-1.25); POTASSIUM 3.8 mmol/L (3.5-4.5)
[2021-08-09 07:47] VITALS: BP 147/68; PULSE 72; TEMP 98.1
[2021-08-09 12:00] VITALS: BP 145/69; PULSE 76; TEMP 98.5
--- NOTE | 2021-08-09 14:23 | NUR ---
MARVA attended rounds with hospitalist; much improvement on patient's part. doctor to contact son; MARVA contacted Meg at [facility]; she is doubtful patient will be accepted and less likely on Thursday or Sat or Sun. She will check with Dr. Hwang and get back to me.
[2021-08-09 15:05] VITALS: BP 131/70; PULSE 86; TEMP 98.2
--- NOTE | 2021-08-09 16:41 | NUR ---
MARVA faxed referrals to [facility] and [facility] (as both are near patient's home). MARVA will continue following.
--- NOTE | 2021-08-09 18:30 | NUR ---
Patient has been doing well today. He is not as confused today. He is drowsy but wakes easily. He has been drinking well with help. He is eating but only takes small bites and eats very slowly. He was approprate with answering most questions. He does no know where he is or what day it is. No bowel movments today. jordan secured to leg, urine is yellow and clear. IVF's discontinued. No other changes at this time. Call light within reach. Bed alarm on.
[2021-08-09 19:55] VITALS: BP 149/60; PULSE 88; TEMP 98.5
--- NOTE | 2021-08-09 20:00 | NUR ---
Bedside shift report received, assumed care for felt coverer. Assessmnet complete. Alert-oriented to self. Denies pain/nausea/shortness of breath. VS stable. Samuels cath with clear yellow urine. Took HS pills crushed in pudding without difficulty. Discussed plan of care with patient but unable to comprehend. Call light in reach/bed alarm on. Will monitor.
[2021-08-10] VITALS (8 sets, daily range): BP systolic 115–160; BP diastolic 62–78; PULSE 74–89; TEMP 97.7–98.6
--- NOTE | 2021-08-10 06:26 | NUR ---
Patient much less confused this shift and less impulsive. Did pull out IV that was in right FA. Restarted in left FA-20g-x1 attempt. Mitts were not used at all this shift. Samuels cath with clear dark yellow urine. SCDs off at this time due to making patient more agitated. No s/s of distress noted. Call light in reach/bed alarm on. Will monitor.
--- NOTE | 2021-08-10 20:00 | NUR ---
Report received, assumed care for manufacturing shift supervisor. Assessment complete. Very drowsy during assessment. Still remains confused. VS stable. HS meds given crushed in pudding. Samuels cath with clear yellow urine. Plan of care discussed but unable to comprehend. Call light given with instruction on use/call for questions/concerns. Bed alarm on. Will monitor.
--- NOTE | 2021-08-11 02:19 | NUR ---
Up out of bed setting alarm off. Very unsteady and confused this shift compared to the last two. While attempting to get out of bed-scratched his left leg-right above the knee. Not actively bleeding. Re-oriented to time/place at this time. Keeps stating "I dont know how the hell I got here." Did ambulate approx 150 feet with walker/2 assist/gait belt. Back to bed with call light/bed alarm on. Will monitor.
[2021-08-11 03:51] VITALS: BP 148/67; PULSE 82; TEMP 98
--- NOTE | 2021-08-11 04:51 | NUR ---
Hospitalist notified of IV being pulled out patient again. Okay to leave it out for not.
--- NOTE | 2021-08-11 05:40 | NUR ---
Seemed more confused over night. Up out of bed setting off alarm with episodes of paranoia. VS remained stable. HS meds given crushed in pudding-tolerated well. Removed IV x1 this shift. No s/s of pain or distress at this time. Call light in reach/bed alarm on. Will monitor.
[2021-08-11 06:47] LABS: BASO % 0.3 % (0.0-2.0); EOS # 0.2 K/mm3 (0.0-0.7); EOS % 2.7 % (0-4.0); GRAN % 58.9 % (42.2-75.2); HEMOGLOBIN 13.6 g/dl (13.5-18.0); LYMPH # 1.8 K/mm3 (1.2-3.4); LYMPH % 26.1 % (20.0-51.0); MEAN CELL VOLUME 89 fl (80.0-100.0); MEAN CORPUSCULAR HEMOGLOBIN 29 pg (27.0-31.0); MEAN CORPUSCULAR HGB CONC 33 g/dl (33.0-37.0); MEAN PLATELET VOLUME 10.9 fl (7.4-10.4); MONO # 0.8 K/mm3 (0.1-0.6); MONO % 11.6 % (1.7-9.3); PLATELET COUNT 236 K/mm3 (130-400); RED BLOOD COUNT 4.62 M/mm3 (4.20-5.60); REDCELL DISTRIBUTION WIDTH-CV 13.5 % (11.5-14.5)
--- NOTE | 2021-08-11 07:00 | NUR ---
Report received from ANNAMARIA Menendez. Pt in bed resting, denies needs, will continue to monitor.
[2021-08-11 07:04] LABS: CALCIUM 9.3 mg/dL (8.4-10.2); CREATININE, serum 0.8 mg/dL (0.72-1.25); POTASSIUM 4.2 mmol/L (3.5-4.5)
[2021-08-11 08:50] VITALS: BP 119/52; PULSE 77; TEMP 98.2
--- NOTE | 2021-08-11 09:39 | NUR ---
0700- Pt. in bed somewhat restless;found w/dried stool on chux and attends in bed.Max to clean and after cleaned and to toilet w/frequent cues for safety w/FWW use and max to clean post x2 episodes of liquid stool. Max to clean and direct to sit in chair for meal. Pt. max for crushed meds and cues to swallow improved but wanting to eat slowly. Frequent cues to feed self and alternate w sips of fluids.
--- NOTE | 2021-08-11 10:31 | NUR ---
Assessment charted. PT resting in chair at side of bed with bed alarm on. Not oriented to place or own but cooperative and trying to follow directions. Did have incontinent bowel movement in brief this am in bed but able to get up to bathroom for second bowel movement with Sandro. Denies pain. Will conitnue to monitor.
[2021-08-11 11:14] VITALS: BP 123/57; PULSE 65; TEMP 97.9
[2021-08-11 16:50] VITALS: BP 121/60; PULSE 66; TEMP 98
--- NOTE | 2021-08-11 18:31 | NUR ---
Pt has been up to bathroom frequently today, pt set off bed alarm at times. Nursing staff assisted with feedings. Pt resting in bed this afternoon but was up in the chair most of day. DId have several loose stools. Updated son on phone this evening and Lamb updating family now. Reprot to bedside nurse who resume care.
[2021-08-11 19:36] VITALS: BP 127/56; PULSE 74; TEMP 98.5
[2021-08-11 23:56] VITALS: BP 128/64; PULSE 72; TEMP 97.9
[2021-08-12 04:04] VITALS: BP 114/49; PULSE 66; TEMP 97.7
--- NOTE | 2021-08-12 05:18 | NUR ---
VERY DISORIENTED TO TIME AND PLACE. PT DENIES PAIN. SOSA CATHETER INTACT/PATENT. PT TRIED GETTING OUT OF BED x1. UNSTEADY ON HIS FEET AT TIMES. TOOK PT FOR A WALK IN THE [place] THIS MORNING. STILL UNSURE WHERE HE IS OR WHY HE'S HERE.
[2021-08-12 08:00] VITALS: BP 121/56; TEMP 97.5
--- NOTE | 2021-08-12 08:45 | NUR ---
Patient in bed resting. Alert and oriented to self. Denies pain at this time. Samuels to DD with clear dark yellow urine present. Assisted patient with breakfast; requires a lot of prompting to swallow. Meds crushed in applesauce this AM. Denies additional needs at this time.
--- NOTE | 2021-08-12 09:36 | NUR ---
MARVA spoke with Meg at [facility]; MARVA faxed requested updates to include psych eval completed. Meg asked that hospitalist speak with Dr. Burgess regarding patient's status. Informed RONNY Menendez with Dr. Burgess's direct #.
[2021-08-12] MEDS ORDERED: FLOMAX 0.40.4 MG/CAP PO (11:01)
[2021-08-12] MEDS ORDERED: LEVSIN0.125 M1 SL (11:01)
[2021-08-12] MEDS ORDERED: B-121000 MCG PO (11:02)
[2021-08-12] MEDS ORDERED: FOLIC ACID 11 MG/TA1 PO (11:02)
[2021-08-12] MEDS ORDERED: NATURE'S BL400 IU/ML PO (11:06)
[2021-08-12 11:10] VITALS: BP 141/54; PULSE 66; TEMP 98.2
[2021-08-12] MEDS ORDERED: LEVEMIR100 U/ML SQ (11:19)
[2021-08-12] MEDS ORDERED: NOVOLOG 100U100 U/M1 SQ (11:20)
--- NOTE | 2021-08-12 13:24 | NUR ---
MARVA recd call from Meg at [facility] and they can accept patient today but not tomorrow as Dr. Burgess will not be there and she is the accepting doctor. MARVA contacted patient's son and he again voiced concerns about patient's confusion and son's inability to transport patient from [place] to [place]. Son asked "what if my car breaks down" and stated he is getting different stories from various people. When asked who specifically he stated doctors, nurses, business case analyst. He was adamant about patient being taken by ambulence and wanting to talk to someone at [place]. This worker provided him with my direct # and asked him to call me back with an answer. MARVA attempted to contact Meg at [place] to update her, left vm to call me as we are still working on transporting patient.
--- NOTE | 2021-08-12 13:40 | NUR ---
MARVA recd call from Meg and Shashank (director school of nursing) from [facility] stating they are no longer able to accept patient due to his many needs. Shashank stated that they reviewed his medical needs with patient's son and Dr. Burgess believes patient has more needs than they are able to handle. Shashank stated after talking to son he would be agreeable to patient going to skilled rehab either in [place] or a nearby facility. This worker related that a referral was already sent to [facility]. Shashank states they are willing to provide and pay for EMS transport. While on this call, Meg recd call from Brooklyn Starr. They will return her call and inform her of the above information. MARVA contacted [facility] and spoke with campus wellness coordinator. She will review referral and call this worker back with answer.
--- NOTE | 2021-08-12 13:45 | NUR ---
Due to patient's son not cooperating very well with the patient's transfer to [facility] contacted for oop pricing. [facility] quoted -$2325.00- Thursday transfer [facility] quoted $3100.00 [facility] of [place]-$2520.00- Earliest they can transfer is Thursday Valentin Menendez collaborated with Dr. Fleming and feel like the patient can go medically necessary due to the patient's jordan
--- NOTE | 2021-08-12 14:19 | NUR ---
MARVA attempted to call Yanni KHANNA) back and follow up on referral. No answer. MARVA called back to speak with Yanni and she was conducting an interview. This worker was asked to call back in a few minutes.
--- NOTE | 2021-08-12 15:49 | NUR ---
MARVA recd call back from [facility] and they will not accept patient d/t his many needs. MARVA faxed referrals to: [facility] in [facility] in [facility] - LOUIE Crouch [facility] - [facility] - Jay Hennessy [facility] - [facility] - [facility]
[2021-08-12 16:18] VITALS: BP 127/72; PULSE 72; TEMP 97.7
--- NOTE | 2021-08-12 18:30 | NUR ---
Patient doing well throughout the day. Samuels maintained to DD with clear dark yellow urine present. Patient remains alert and oriented to self, believes he is in [facility]. Denies pain or needs at this time. Will report off to shift nurse manager.
[2021-08-12 19:07] VITALS: BP 144/72; PULSE 55; TEMP 98.4
[2021-08-12 23:18] VITALS: BP 116/67; PULSE 70; TEMP 98.3
[2021-08-13 03:23] VITALS: BP 130/67; PULSE 71; TEMP 98.3
[2021-08-13 06:52] LABS: BASO # 0.1 K/mm3 (0.0-0.2); BASO % 0.8 % (0.0-2.0); EOS # 0.3 K/mm3 (0.0-0.7); EOS % 4.1 % (0-4.0); GRAN % 47.8 % (42.2-75.2); HEMATOCRIT 39.8 % (42.0-52.0); HEMOGLOBIN 13.5 g/dl (13.5-18.0); LYMPH # 2.2 K/mm3 (1.2-3.4); LYMPH % 35.2 % (20.0-51.0); MEAN CELL VOLUME 87 fl (80.0-100.0); MEAN CORPUSCULAR HEMOGLOBIN 30 pg (27.0-31.0); MEAN CORPUSCULAR HGB CONC 34 g/dl (33.0-37.0); MONO # 0.7 K/mm3 (0.1-0.6); MONO % 11.6 % (1.7-9.3); PLATELET COUNT 233 K/mm3 (130-400); RED BLOOD COUNT 4.56 M/mm3 (4.20-5.60); REDCELL DISTRIBUTION WIDTH-CV 13.2 % (11.5-14.5)
[2021-08-13 07:11] LABS: CALCIUM 9.3 mg/dL (8.4-10.2); CREATININE, serum 0.78 mg/dL (0.72-1.25); POTASSIUM 4.1 mmol/L (3.5-4.5)
[2021-08-13 07:22] VITALS: BP 151/63; PULSE 75; TEMP 98.2
--- NOTE | 2021-08-13 07:40 | NUR ---
Patient bed alarm sounding at approximately 0700, patient found in room on his knees by the bed. Stood up from floor by himself. Denies hitting head, states he was trying to get up but does not know what happens. Denies pain at this time. VSS. See chart. Notified Maria Elena JEFFERSON.
--- NOTE | 2021-08-13 08:50 | NUR ---
Patient in bed eating breakfast. Alert and oriented to self. Meds crushed in applesauce. Samuels to DD with clear yellow urine present. Patient denies needs at this time.
--- NOTE | 2021-08-13 09:07 | NUR ---
MARVA recd call from Rhonda at [facility] - unable to accept patient d/t no beds Call from Abida espinoza [facility] - this is long-term care vs skilled SW contacted Lilly at [facility] [phone] - requested additional info; this worker faxed progress notes from 08-02 to present
--- NOTE | 2021-08-13 11:04 | NUR ---
MARVA contacted [facility] in [place], spoke with Lilly, they are still unable to give this worker a definitive answer and she will call me back within the hour. MARVA contacted [facility] in [place], spoke with Marybeth. She and Bhaskar will be reviewing and let me know. MARVA informed them patient has d/c orders.
[2021-08-13 11:59] VITALS: BP 130/60; PULSE 59; TEMP 97.5
--- NOTE | 2021-08-13 12:44 | NUR ---
SW sent referral to [facility] yesterday and they denied d/t patient's high needs. MARVA then recd call from Christina ([phone]) at this facility stating they had recd call from patient's son, Niles, asking them about placement. Facility is now considering but would like someone to put eyes on patient. Sita Navarrete will be doing an on-site visit this evening (08/13) at 7:30 to meet with patient before they will consider. They are also asking for a PASSR to be completed. MARVA informed nursing and house gabriella Lorelei of this visit. MARVA also followed up with [facility] in [place] ([phone]); Spoke with Anyi; they recd referral but would like to talk to the son, Niles. They will contact this worker with a decision today.
--- NOTE | 2021-08-13 14:31 | NUR ---
SW left message for Marybeth, following up on referral, left to call this worker. SW called to follow up on referral sent to [facility] in [place], spoke to Annabelle Jeter and they have no beds as well as a waiting list.
[2021-08-13 15:07] VITALS: BP 138/74; PULSE 62; TEMP 96.1
--- NOTE | 2021-08-13 16:41 | NUR ---
MARVA recd call from Brooklyn Luna who spoke with son Niles asking this worker to contact specific hospitals/swingbeds and/or skilled rehab near son's home. This worker contacted the following thus far: [facility], spoke with OLIVE Marquis. She cannot guarantee they will have any beds tomorrow but requested a referral to [phone] with attn: Kandis. Referral faxed. Kandis can be reached at [phone] [facility] only - no beds and no skilled care [facility] - no beds and she told Niles this as well [facility] states there are no beds until August. MARVA will continue to follow up with referrals
[2021-08-13 18:54] VITALS: BP 136/76; PULSE 70; TEMP 97.3
--- NOTE | 2021-08-13 19:13 | NUR ---
Patient doing well this afternoon, has been up attempting to get out of bed or recliner. States that he is going home and wants to leave. Patient up ambulating in room with SBA, remembers to take jordan catheter with him. Patient denies pain or needs at this time. Will report off to surface miner.
--- NOTE | 2021-08-13 22:38 | NUR ---
Patient assessed around 2144. Alert, disoriented to time, place, and situation, and not easily redirected. Patient taken for a walk. Denies pain and discomfort. Voices no questions, needs, or concerns at this time. In bed with high fall risk precautions in place. Call light within reach.
[2021-08-14 04:26] VITALS: BP 156/81; PULSE 73; TEMP 98.2
--- NOTE | 2021-08-14 05:19 | NUR ---
Patient continues to have confusion, and does not redirect easily. Denies pain and discomfort. Indwelling jordan catheter continues to drain clear yellow urine via dependent drainage. Voices no questions, needs, or concerns at this time. Resting in bed with call light within reach. Bed alarm on.
--- NOTE | 2021-08-14 09:20 | NUR ---
Pt awake at this time trying to crawl out of bed and was pulling on his catheter. Readjusted catheter and placed new stat lock. Pt does have breakfast in his room. Set up try and got pt sat up for breakfast. Pt is in a pleasent mood, but is confused. He keeps talking about his and asking if she is downstairs. He did take his pills crushed in applesauce and is doing an okay job feeding himself. Pt smiles throughout assessment and says how much he appreciates us. Bed alarm on and door left open so that pt can be visualized from the desk.
[2021-08-14 09:21] VITALS: BP 150/74; PULSE 64; TEMP 98
[2021-08-14 11:48] VITALS: BP 118/51; PULSE 72; TEMP 97.9
--- NOTE | 2021-08-14 12:16 | NUR ---
Pt continues to sit up in the chair. He is slowly working on eating. He stated that he has always been a slow eater. Pt is pleasently confused. Chair alarm on
--- NOTE | 2021-08-14 15:03 | NUR ---
Pt has been more impulsive this afternoon. He was sitting up in the chair, but kept sliding himself to the end. Assisted pt back to bed. Pt appeared tired and did close his eyes. That last about 15 minutes and he was trying to get up again. Unable to keep him content without staying in room with him. SHARAD Paz sitting with pt at this time
[2021-08-14 16:00] VITALS: BP 143/59; PULSE 68; TEMP 98.8
--- NOTE | 2021-08-14 16:17 | NUR ---
Dock Worker followed up with [facility] and they are going to decline patient. SW collaborated with RN, Maria Elena to obtain further information about when patient's jordan catheter can come out. SW will follow up.
--- NOTE | 2021-08-14 19:12 | NUR ---
Took turns sitting with pt off and on throughout the afternoon. Pt continues to state that he is ready to leave and thinking he drove here. Tried to reorient pt. Attempted to call urologist to get jordan catheter recommendations. Report given, bed alarm on
[2021-08-14 20:30] VITALS: BP 125/56; PULSE 69; TEMP 98.6
--- NOTE | 2021-08-14 21:29 | NUR ---
Patient assessed around 1930. Disoriented, but pleasant. Needs frequent reminders. High fall risk precautions in place. Indwelling jordan catheter patent, draining clear yellow urine via dependent drainage. Resting in bed with call light within reach. Bed alarm on.
[2021-08-14 23:31] VITALS: BP 133/55; PULSE 75
[2021-08-15 05:12] VITALS: BP 136/58; PULSE 74; TEMP 98.4
--- NOTE | 2021-08-15 05:23 | NUR ---
Patient continues to be pleasantly confused. Redirected that he is at the hospital in [place], but very forgetful. High fall risk precautions in place.
[2021-08-15 08:29] VITALS: BP 129/57; PULSE 74; TEMP 98.3
--- NOTE | 2021-08-15 09:17 | NUR ---
Pt sitting up in the chair at this time. He is doing okay feeding himself, he states he has always been a slow eater. Pills continue to be crushed and mixed with applesauce. Pt is very pleasent although confused. Discussed pt case with Dr Gaytan as far as the urinary retention and jordan for hopeful discharge. Chair alarm on
[2021-08-15 12:00] VITALS: BP 89/64; PULSE 78; TEMP 97.5
--- NOTE | 2021-08-15 13:11 | NUR ---
Pt continued to be sitting up in the chair. Went in pt room as he was messing with his catheter and he managed to pop a hole in the tubing in which the balloon inflates. Balloon no longer infalted, catheter removed. Notified urology and they were okay with leaving catheter out and pt discharging. Pt does have a follow up appointment tomorrow at 1:30 in [place].
[2021-08-15] MEDS ORDERED: LEVSIN0.125 M1 PO (13:22)
[2021-08-15] MEDS ORDERED: B-121000 MCG PO (13:22)
[2021-08-15] MEDS ORDERED: FLOMAX 0.40.4 MG/CAP PO (13:22)
[2021-08-15] MEDS ORDERED: FOLIC ACID 11 MG/TA1 PO (13:22)
[2021-08-15 16:00] VITALS: BP 117/55; PULSE 80; TEMP 98.7
--- NOTE | 2021-08-15 16:35 | NUR ---
Approval from WILLEM Disla for EMS transfer to be arranged. [facility] contacted and report that they are unable to transfer the patient tonight. Transportation time arranged for 08/16 at 0730 for [facility] to transfer the patient home due to [facility] declining patient. WILLEM Gonzalez, RN and physician staff notified. WILLEM Disla obtained verbal consent from patient's son Niles for transfer. EMS transfer forms preped, signature from obtained and forms placed on the patient's chart. supervisor extruding department Gaby and ANNAMARIA Sterling notified.
--- NOTE | 2021-08-15 16:45 | NUR ---
Operations Vice President faxed referral to [facility], which covers [place].
--- NOTE | 2021-08-15 18:21 | NUR ---
Patient sitting up in the recliner eating dinner. Alert and partially confused, has been setting off the bed alarm trying to get out of bed without nursing assistance. Denies pain and discomfort. Has been unable to void, doctor aware. No further needs expressed. Call light within reach. Chair alarm on
[2021-08-15 19:52] VITALS: BP 131/59; PULSE 59; TEMP 98
[2021-08-15 22:55] VITALS: BP 152/52; PULSE 77; TEMP 98.1
[2021-08-16 03:25] VITALS: BP 107/66; PULSE 62; TEMP 98
--- NOTE | 2021-08-16 06:39 | NUR ---
PT RESTING QUIETLY IN BED @ THIS TIME. PT IS VERY IMPULSIVE. LEAVES BED ON HIS OWN VERY OFTEN, IS CONFUSED ET DOES NOT USE CALL LIGHT. PT STATES REPEATEDLY THAT HE WOULD LIKE TO GO OUTSIDE TO HIS VEHICLE. ATTEMPTS MADE TO REORIENT PT BUT IS UNABLE TO COMPREHEND. PT IS PLEASANT, COOPERATIVE, ET EASILY REDIRECTED INTO BED. PT'S GAIT IS STEADY WHILE AMBULATING. PT HAS BEEN INCONTINENT OF SMALL AMOUNT OF URINE X1 DURING NIGHT. INCONTINENCE BRIEFS CHANGED. PT GIVEN 2 CARTONS OF MILK TO DRINK ET TOLERATES WELL. TAKES PILLS CRUSHED IN APPLESAUCE, SWALLOWS SLOWLY ET HAS TO BE REMINDED. RESPIRATIONS UNLABORED, BED ALARM ON, CALL LIGHT WITHIN REACH.
--- NOTE | 2021-08-16 08:14 | NUR ---
Discharge instructions reviewed with patient, verbalized understanding. Discharged via EMS to patient resident in [place]. Brooklyn Matty updated on discharge time to relay to son, as he is to meet ambulance up arrival to residence. Patient refused to sign paperwork.
--- NOTE | 2021-08-16 09:06 | NUR ---
Patient discharged home via EMS at 0815 this morning. MARVA was contacted by Hillary at [facility] out of [place] who advised she received referral and needs orders. MARVA faxed DC orders to [facility] in [place]. MARVA contacted patient's son, Niles and provided the above update. MARVA advised [facility] would contact him directly to set up the first visit. Niles asked what time patient left. MARVA advised patient left at 0815. [facility] [place] PH#[phone] FAX#[phone]
--- NOTE | 2021-08-16 10:22 | NUR ---
[employer] worker contacted patient's son, Niles, this am and advised that ambulance will transport patient to home today around 7:30. Worker contacted Niles back and advised of actual time patient discharged from the hospital.
== END 2021-08-16 08:20 | disposition home or self-care (01) | DRG 71 ==
LOC: SURG 02:25
PROVIDERS: Internal Medicine; Physician Assistant; Student in an Organized Health Care Education/Training Program; ADMIT Internal Medicine
DX: G93.41 Metabolic encephalopathy (principal); N39.0 Urinary tract infection, site not specified; I48.20 Chronic atrial fibrillation, unspecified; E87.4 Mixed disorder of acid-base balance; E11.9 Type 2 diabetes mellitus without complications; I10 Essential (primary) hypertension; N32.0 Bladder-neck obstruction; N47.2 Paraphimosis; Z66 Do not resuscitate; K42.9 Umbilical hernia without obstruction or gangrene; E78.5 Hyperlipidemia, unspecified; N40.1 Benign prostatic hyperplasia with lower urinary tract symptoms; R33.8 Other retention of urine; E87.6 Hypokalemia; E83.42 Hypomagnesemia; E83.39 Other disorders of phosphorus metabolism; E04.1 Nontoxic single thyroid nodule; F03.90 Unspecified dementia, unspecified severity, without behavioral disturbance, psychotic disturbance, mood disturbance, and anxiety; R31.9 Hematuria, unspecified; C61 Malignant neoplasm of prostate; Z20.822 Contact with and (suspected) exposure to COVID-19; Z86.73 Personal history of transient ischemic attack (TIA), and cerebral infarction without residual deficits; Z79.82 Long term (current) use of aspirin; Z79.4 Long term (current) use of insulin
CPT/HCPCS: 99222-AI; 99231-AI; 99232-AI; 99233-AI; 99239; A9585; J0360; J0696; J1630; J1650; J1815; J2060; J2270; J2405; J3475; J3480; J7030; J7070; Q9967